=== PATIENT | female | born 1950 | race Asian ===

== ENCOUNTER 2016-09-26 23:03 | Emergency (ER) | payer MEDICARE ==
[~2016-09-26] VITALS: Ht 152.4 cm; Wt 43.6 kg
[2016-09-26 23:07] VITALS: BP 146/75; PULSE 79; RESP 16; O2SAT 99
--- NOTE | 2016-09-26 23:53 | ED.REPORT ---
HPI- Female Date of Service Sep 26, 2016 ED Provider: Robert Lockhart DO A 66 year old female with a history of cardiac stent, cholecystectomy, hysterectomy, and UTI presents to the ED complaining of possible UTI symptoms. The pt was recently diagnosed with a UTI and prescribed Cipro. However she has been travelling from [place] for a and left her medication at home. She began experiencing lower abdominal pain tonight and is now requesting an antibiotic prescription. Nursing Notes Stated Complaint: POSS UTI Chief Complaint: Female Abdominal Pain Nursing Notes Reviewed: Yes Allergies: Coded Allergies: iodine (Verified Allergy, Unknown, 09/26/16) General Time Seen by MD: 23:45 Chief Complaint Other (UTI symptoms) Hx Obtained From: Patient Arrived By: Walk-in Sudden in Onset?: No Recent Healthcare: No recent hospitalization, Recent doctor visit Similar Sx Previous: No Past Medical History Past Medical History UTI thyroid disease Past Surgical History cardiac stent Reports: Cholecystectomy, Hysterectomy Smoking History Unknown if Ever Smoker Social History Other Social History: Visiting locally Ambulatory Status Independent Review of Systems Constitutional: Denies: Fever GI: Reports: Abdominal pain Musculoskeletal: Denies: Neck pain Skin: Denies Rash Complete sys rev & neg: except as marked. Physical Exam Initial Vital Signs Vital Signs (First) Date Time Temp Pulse Resp B/P Pulse Ox O2 Delivery O2 Flow Rate FiO2 09/26/16 23:07 36.2 79 16 146/75 99 Room Air Initial VS: Reviewed Female Genitourinary: Exam deferred General/Constitutional: Awake, Alert Respiratory / Chest: Atraumatic, Breath sounds NL, Breath sounds = bilat, No respiratory distress Cardiovascular: Heart rate NL, Regular rhythm, Heart sounds NL Abdomen: Atraumatic, Soft, Non-tender Back: Atraumatic, Full range of motion Skin: Atraumatic, Color NL, No rash, Warm, Dry Head / Eyes: Atraumatic, Normocephalic, PERRL, EOMI ENT: Atraumatic, Airway patent, Mucous membranes moist Neck: Atraumatic, Supple, Full range of motion Upper Extremity / MS: Atraumatic, Full range of motion Lower Extremity / Pelvis / MS: Atraumatic, Full range of motion Neurologic: Oriented X3, Speech NL, No motor deficits, No sensory deficits Psychiatric: Affect NL, Mood NL Interpretation & Diagnostics Lab Results Interpretation Test 4/29/17 23:30 Urine Color Yellow (YELLOW) Urine Appearance Cloudy (CLEAR,HAZY) Urine pH 7.5 (5.0-8.0) Urine Specific [place] 1.015 (1.003-1.035) Urine Protein Negativemg/dL (NEG,TRACE) Urine Glucose (UA) Negativemg/dL (NEGATIVE) Urine Ketones Negativemg/dL (NEGATIVE) Urine Occult Blood Small (NEGATIVE) Urine Nitrite Negative (NEGATIVE) Urine Bilirubin Negative (NEGATIVE) Urine Urobilinogen Normalmg/dL (NORMAL) Urine Leukocyte Esterase Moderate (NEGATIVE) Urine RBC 3-10/hpf (0-2) Urine WBC >50/hpf (0-5) Urine Epithelial Cells Occasional/hpf (NONE-MOD) Urine Crystals None seen (NONE SEEN) Urine Bacteria Many/hpf (NONE-FEW) Urine Hyaline Casts None/lpf (NONE) Urine Granular Casts None seen (NONE SEEN) Urine Waxy Casts None seen (NONE SEEN) Urine Red Blood Cell Casts None seen (NONE SEEN) Urine White Blood Cell Casts None seen (NONE SEEN) Urine Mucus None seen (None Seen) Urine Trichomonas None seen (NONE SEEN) Urine Yeast None (NONE SEEN) Urinalysis Comment None Urine Culture Reflexed Indicated Hold Urine Received (Received) Pulse Oximetry Interpretation Pulse Oximetry Interpretation: 99% on room air Pulse Oximetry: Pulse Ox normal Re-Eval/Medical Decision Re-Evaluation/Progress : Time of Eval: 23:45 Patient Status: Condition improved Re-Evaluation/Progress Note: Pt informed of the diagnosis and plan for discharge during the initial interview. The pt understands and agrees with the plan. All questions are addressed at this time. Counseled Regarding: Diagnosis, Lab results, Need for follow-up, When/why to return to ED Discharge & Departure Impression: Primary Impression: UTI (urinary tract infection) Urinary tract infection type: site unspecified Hematuria presence: without hematuria Qualified Code: N39.0 - Urinary tract infection, site not specified Disposition: Home Discharge Condition All VS Reviewed: Yes Condition: Stable Patient Instructions: Urinary Tract Infection in Women (ED) Additional Instructions: Take Bactrim twice daily for 5 days. Call your primary care physician on Wednesday morning to arrange a follow up appointment next week to review your urine culture results. Return to the emergency department if you develop any new or worsening symptoms including fever or flank pain. Referrals: [facility] Scribe Attestation Portions of this note were transcribed by Rodrigo Washington. I, Dr. Lockhart personally performed the history, physical exam and medical decision-making; I reviewed and confirmed the accuracy of the information in the transcribed note. Signed by: Gabriel Pelayo, 09/27/16 and 0044. copies to: [facility] Robert Lockhart DO Sep 26, 2016 23:53 RODRIGO WASHINGTON Sep 26, 2016 23:56
[2016-09-26] MEDS ORDERED: Phenazopyridine 97.5 mg Tablet PO ONE (23:55)
[2016-09-27] MEDS ORDERED: Trimethoprim-Sulfa 160 mg-800 mg Tablet PO ONE (00:10)
[2016-09-27 00:20] LABS: APPEARANCE,URINE CLOUDY (CLEAR,HAZY); COLOR,URINE YELLOW (YELLOW); PH,URINE 7.5 (5.0-8.0)
[2016-09-27 00:21] LABS: OCCULT BLOOD,URINE SMALL (NEGATIVE); UROBILINOGEN,URINE NORMAL (NORMAL)
== END 2016-09-27 00:10 | disposition home or self-care (01) ==
LOC: SED 23:03
DX: N39.0 Urinary tract infection, site not specified (principal); Z95.5 Presence of coronary angioplasty implant and graft